=== PATIENT | male | born 1950 | race Caucasian/White ===

== ENCOUNTER → 2018-01-10 | Outpatient (CLI) | payer OTHER ==
[~2018-01-10] MED LIST: CIALIS5 MG PO; HYZAAR 50-12.1 UDTAB PO; LORTAB 5/500 501 TAB PO; NO HOME MEDICATIONS; NORVASC 10MG10 MG PO; PRAVACHOL 40MG40 MG PO
== END ==
LOC: COL.RAD 07:04
DX: K63.9 Disease of intestine, unspecified (principal); I71.4 Abdominal aortic aneurysm, without rupture; M48.061 Spinal stenosis, lumbar region without neurogenic claudication
CPT/HCPCS: Q9967

== ENCOUNTER 2018-01-13 14:17 | Inpatient (IN) | payer OTHER ==
[~2018-01-13] VITALS: Ht 180.3 cm; Wt 112.5 kg
[2018-01-21] VITALS (11 sets, daily range): BP systolic 96–132; BP diastolic 49–78; PULSE 58–82; TEMP 98.2–98.3
[2018-01-21] MEDS ORDERED: PRILOSEC 20MG20 MG PO (07:38)
[2018-01-21] MEDS ORDERED: COZAAR 50MG50 MG/TAB PO (07:38)
[2018-01-21] MEDS ORDERED: VIAGRA 25MG TAB25 MG PO (07:39)
[2018-01-21] MEDS ORDERED: COZAAR 25MG25 MG/TAB PO (08:06)
[2018-01-22] VITALS (7 sets, daily range): BP systolic 109–128; BP diastolic 59–75; PULSE 47–57; TEMP 97.5–98
[2018-01-22 07:36] LABS: HEMATOCRIT 45.3 % (42.0-52.0); HEMOGLOBIN 15.8 g/dl (13.5-18.0)
[2018-01-22 07:47] LABS: CALCIUM 9.3 mg/dL (8.4-10.2); CREATININE, serum 0.99 mg/dL (0.66-1.25); POTASSIUM 4.2 mmol/L (3.4-5.0)
[2018-01-23 04:00] VITALS: BP 130/78; PULSE 50; TEMP 98
[2018-01-23 10:38] VITALS: BP 120/67; PULSE 58; TEMP 97.5
== END 2018-01-23 14:10 | disposition home or self-care (01) | DRG 331 ==
LOC: INPTSU 01-21 07:12 → SURG 01-21 09:00
PROVIDERS: Surgery
PROC: 8E0W4CZ Robotic Assisted Procedure of Trunk Region, Percutaneous Endoscopic Approach (ICD-10-PCS; 2018-01-21)
PROC: 0DBL4ZZ Excision of Transverse Colon, Percutaneous Endoscopic Approach (ICD-10-PCS; principal; 2018-01-21 09:00)
DX: C18.4 Malignant neoplasm of transverse colon (principal); I10 Essential (primary) hypertension; E88.81 Metabolic syndrome and other insulin resistance
CPT/HCPCS: A4314; A9284; J0690; J1100; J1170; J1650; J1885; J2405; J2704; J3010; J7120

== ENCOUNTER → 2018-02-11 | Outpatient (CLI) | payer OTHER ==
[~2018-02-11] MED LIST changes: +COZAAR 25MG25 MG/TAB PO; +COZAAR 50MG50 MG/TAB PO; +PRILOSEC 20MG20 MG PO; +VIAGRA 25MG TAB25 MG PO
== END ==
LOC: COL.RAD 08:06
DX: C18.4 Malignant neoplasm of transverse colon (principal); N28.1 Cyst of kidney, acquired
CPT/HCPCS: Q9967

== ENCOUNTER → 2018-08-01 | Outpatient (CLI) | payer OTHER | LOC: COL.RAD 07:58 | DX: C18.4 Malignant neoplasm of transverse colon (principal); I71.4 Abdominal aortic aneurysm, without rupture; Z90.49 Acquired absence of other specified parts of digestive tract; Z96.642 Presence of left artificial hip joint | CPT/HCPCS: Q9967 ==

== ENCOUNTER → 2022-11-04 | Outpatient (CLI) | payer OTHER | LOC: COL.RAD 10:17 | DX: C18.9 Malignant neoplasm of colon, unspecified (principal); K76.0 Fatty (change of) liver, not elsewhere classified; I71.43 Infrarenal abdominal aortic aneurysm, without rupture | CPT/HCPCS: Q9967 ==

== ENCOUNTER → 2023-12-07 | Outpatient (CLI) | payer MEDICARE, OTHER ==
[~2023-12-07] VITALS: Ht 180.3 cm; Wt 118.0 kg
[~2023-12-07] MED LIST changes: +LIPITOR 80MG80 MG PO; +Triamcinolone 40 MG/ML 1 ML VIAL IJ SCH
[2023-12-07 09:12] VITALS: BP 157/88; PULSE 58; TEMP 97.9
[2023-12-07 09:50] VITALS: BP 148/87; PULSE 55
== END ==
LOC: COL.RAD 08:48
DX: M48.061 Spinal stenosis, lumbar region without neurogenic claudication (principal); M54.16 Radiculopathy, lumbar region
CPT/HCPCS: J0665; J3301